=== PATIENT | male | born 1980 | race Hispanic/Latino ===

== ENCOUNTER 2018-05-08 09:27 | Emergency (ER) | payer OTHER ==
[~2018-05-08] VITALS: Ht 162.6 cm; Wt 79.1 kg
[~2018-05-08 09:27] MED LIST: LEVAQUIN750 MG PO
[2018-05-08] MEDS ORDERED: AMOXICILLIN500 M1 PO (11:18)
[2018-05-08 11:43] VITALS: BP 156/93
== END 2018-05-08 11:44 | disposition home or self-care (01) ==
LOC: EME 09:27
DX: H66.91 Otitis media, unspecified, right ear (principal)